=== PATIENT | male | born 1990 | race Caucasian/White ===

== ENCOUNTER 2019-11-29 11:56 | Inpatient (IN) | payer OTHER ==
[~2019-11-29] VITALS: Ht 167.6 cm; Wt 60.0 kg
--- NOTE | 2019-11-29 12:01 | NUR ---
PT AMBULATED TO RESTROOM WITH STEADY GAIT.
[2019-11-29] MEDS ORDERED: PLEASE ENTER ALLERGIES MC SCH (12:30)
[2019-11-29] MEDS ORDERED: SODIUM CHLORIDE FLUSH 10ML SYR IVF ONE (12:30)
[2019-11-29 12:53] LABS: MEAN CORPUSCULAR HEMOGLOBIN 35.6 pg (27.5-34.5); MEAN CORPUSCULAR HGB CONC 33.9 g/dL (33.2-36.2); MEAN CORPUSCULAR VOLUME 105.1 fL (81-97); MEAN PLATELET VOLUME 8.1 fL (7.4-10.4); PLATELET COUNT 307 x10^3/uL (130-400); RED CELL DISTRIBUTION WIDTH 14.7 % (9.4-14.8)
[2019-11-29 13:03] LABS: ALBUMIN 2.2 g/dL (3.4-5.0); ANION GAP 11 mmol/L (5-15); CALCIUM 7.1 mg/dL (8.5-10.1); CHLORIDE 103 mmol/L (98-107)
[2019-11-29 13:10] LABS: ALANINE AMINOTRANSFERASE 99 U/L (12-78); ALKALINE PHOSPHATASE 73 U/L (45-117); BILIRUBIN,TOTAL 0.6 mg/dL (0.2-1.0); CREATININE 0.95 mg/dL (0.7-1.3); TOTAL PROTEIN 6.4 g/dL (6.4-8.2); TROPONIN I < 0.015 ng/mL (0.000-0.045)
[2019-11-29 13:15] LABS: INTERNATIONAL NORMALIZED RATIO 1.15 (0.93-1.1); PROTHROMBIN TIME 12.2 Seconds (9.6-11.5)
--- NOTE | 2019-11-29 13:43 | NUR ---
PT RESTING COMFORTABLY ON GURNEY WATCHING TV. NADN. WARM BLANKET PROVIDED.
[2019-11-29 14:07] LABS: MD YES
[2019-11-29 14:16] LABS: BASOS#(MANUAL) 0.09 x10^3/uL (0-0.1); BASOS% (MANUAL) 1 % (0-1); LYMPH#(MANUAL) 0.43 x10^3/uL (1-3.4); LYMPHS% (MANUAL) 5 % (22-44); MONOS#(MANUAL) 0.95 x10^3/uL (0.3-2.7); MONOS% (MANUAL) 11 % (2-9)
[2019-11-29 14:24] LABS: BAND#(MANUAL) 1.98 x10^3/uL; BANDS%(MANUAL) 23 % (0-7)
[2019-11-29 14:27] LABS: <PLATELET ESTIMATE> ADEQUATE; <PLT MORPHOLOGY> NORMAL PLT MORPH
[2019-11-29 14:28] LABS: PMNS WITH VACUOLES 1+; TOXIC GRAN 1+
[2019-11-29 14:29] LABS: METAMYELOCYTES# (MANUAL) 0.17 x10^3/uL (0-0); METAMYELOCYTES% (MANUAL) 2 % (0-1)
[2019-11-29 14:30] LABS: MYELOCYTES# (MANUAL) 0.09 x10^3/uL (0-0); MYELOCYTES% (MANUAL) 1 % (0-0); SEGS% (MANUAL) 57 % (42-75)
--- NOTE | 2019-11-29 14:35 | NUR ---
ALL RESULTS ARE BACK AT THIS TIME. CHART UP FOR RECHECK.
--- NOTE | 2019-11-29 14:41 | NUR ---
MD AT BEDSIDE TO UPDATE PT ON POC.
--- NOTE | 2019-11-29 14:42 | NUR ---
PT RESTING COMFORTABLY ON [place] WATCHING TV.
[2019-11-29] MEDS ORDERED: SODIUM CHLORIDE FLUSH 10ML SYR IVF PRN (15:00)
--- NOTE | 2019-11-29 15:31 | NUR ---
KENDELL LUNA DELIVERED. PT SITTING UP ON [facility].
--- NOTE | 2019-11-29 15:57 | NUR ---
REPORT GIVEN TO ALFONZO HERNANDEZ.
[2019-11-29] MEDS ORDERED: ACETAMINOPHEN 325 MG TABLET PO PRN (16:30)
[2019-11-29] MEDS ORDERED: LORazepam 1MG TABLET PO PRN ×4 (16:30)
[2019-11-29] MEDS ORDERED: POLYETHYLENE GLYCOL 17 GM PACKET PO PRN (16:30)
[2019-11-29] MEDS ORDERED: ONDANSETRON 2MG/ML, 2ML IVPush PRN (16:30)
[2019-11-29] MEDS ORDERED: GUAIFENESIN/DM 200-20MG, 10ML UDC PO PRN (16:30)
[2019-11-29] MEDS ORDERED: POTASSIUM CHLORIDE 20 MEQ TAB.ER.PRT PO ONE (16:30)
[2019-11-29] MEDS ORDERED: LORazepam 0.5MG TABLET PO PRN (16:30)
[2019-11-29] MEDS ORDERED: DOCUSATE 100 MG CAPSULE PO PRN (16:30)
[2019-11-29] MEDS ORDERED: PROMETHAZINE 25 MG/ML, 1ML IM PRN (16:30)
[2019-11-29] MEDS ORDERED: BISACODYL 10 MG SUPP PR PRN (16:30)
[2019-11-29] MEDS: ENOXAPARIN 40 MG/0.4 ML SQ SCH (17:00)
[2019-11-29 18:05] VITALS: BP 128/89
[2019-11-29] MEDS: NICOTINE 21 MG/24 HR PATCH.TD24 TD SCH (18:11)
[2019-11-29] MEDS: CHLORDIAZEPOXIDE 25 MG CAPSULE PO SCH ×2 (18:11→23:57)
[2019-11-29] MEDS: THIAMINE 200 MG, MVI ADULT 10 ML, FOLIC ACID 1 MG in D5%-0.9% NACL 1,000 ML IV SCH (18:15)
[2019-11-29 19:25] LABS: CLOSTRIDIUM DIFFICILE TOXIN POSITIVE (Negative)
[2019-11-29 19:26] LABS: CLOSTRIDIUM DIFFICILE ANTIGEN POSITIVE
[2019-11-29] MEDS: VANCOMYCIN 50 MG/ML ORAL SUSP PO SCH (20:50)
[2019-11-29] MEDS ORDERED: BENZONATATE 100 MG CAPSULE ONE (23:55)
[2019-11-29] MEDS: BENZONATATE 100 MG CAPSULE PO SCH (23:58)
[2019-11-30 02:00] VITALS: BP 129/87
[2019-11-30] MEDS: VANCOMYCIN 50 MG/ML ORAL SUSP PO SCH ×4 (02:43→22:41)
[2019-11-30 05:43] LABS: ALBUMIN 1.8 g/dL (3.4-5.0); ANION GAP 7 mmol/L (5-15); CALCIUM 7.3 mg/dL (8.5-10.1); CHLORIDE 106 mmol/L (98-107)
[2019-11-30 05:57] LABS: ALANINE AMINOTRANSFERASE 68 U/L (12-78); ALKALINE PHOSPHATASE 62 U/L (45-117); BILIRUBIN,TOTAL 0.7 mg/dL (0.2-1.0); CREATININE 0.74 mg/dL (0.7-1.3); TOTAL PROTEIN 5.5 g/dL (6.4-8.2)
[2019-11-30 06:17] LABS: MD YES; MEAN CORPUSCULAR HEMOGLOBIN 36.1 pg (27.5-34.5); MEAN CORPUSCULAR HGB CONC 33.9 g/dL (33.2-36.2); MEAN CORPUSCULAR VOLUME 106.4 fL (81-97); MEAN PLATELET VOLUME 8.3 fL (7.4-10.4); PLATELET COUNT 268 x10^3/uL (130-400); RED BLOOD COUNT 3.11 x10^6/uL (4.38-5.82); RED CELL DISTRIBUTION WIDTH 14.6 % (9.4-14.8)
[2019-11-30 06:19] LABS: BANDS%(MANUAL) 37 % (0-7); EOS#(MANUAL) 0.17 x10^3/uL (0.0-0.4); EOS% (MANUAL) 1 % (1-7); LYMPH#(MANUAL) 0.69 x10^3/uL (1-3.4); LYMPHS% (MANUAL) 4 % (22-44); MONOS#(MANUAL) 0.87 x10^3/uL (0.3-2.7); MONOS% (MANUAL) 5 % (2-9); SEG#(MANUAL) 9.17 x10^3/uL (1.8-6.8); SEGS% (MANUAL) 53 % (42-75)
[2019-11-30 06:20] LABS: <PLATELET ESTIMATE> ADEQUATE; <PLT MORPHOLOGY> NORMAL PLT MORPH; PMNS WITH VACUOLES 1+; TOXIC GRAN 1+
[2019-11-30] MEDS: CHLORDIAZEPOXIDE 25 MG CAPSULE PO SCH ×4 (06:28→22:41)
[2019-11-30 07:01] VITALS: BP 115/84
[2019-11-30] MEDS: AZITHROMYCIN 500 MG in SODIUM CHLORIDE 0.9% 250 ML IV SCH (08:48)
[2019-11-30] MEDS: BENZONATATE 100 MG CAPSULE PO SCH ×3 (08:48→22:41)
[2019-11-30] MEDS: CEFTRIAXONE PMX 1GM/50ML 50 ML IV SCH (08:48)
[2019-11-30] MEDS ORDERED: MAGNESIUM SULFATE PMX 4GM/100M 100 ML IV ONE (10:00)
[2019-11-30] MEDS: POTASSIUM CHLORIDE 20 MEQ TAB.ER.PRT PO SCH ×2 (12:46→16:56)
[2019-11-30 13:23] VITALS: BP 111/76
[2019-11-30] MEDS: ENOXAPARIN 40 MG/0.4 ML SQ SCH (17:00)
[2019-11-30] MEDS: NICOTINE 21 MG/24 HR PATCH.TD24 TD SCH (17:09)
[2019-11-30 18:47] VITALS: BP 117/84
[2019-11-30] MEDS: THIAMINE 200 MG, MVI ADULT 10 ML, FOLIC ACID 1 MG in D5%-0.9% NACL 1,000 ML IV SCH (19:05)
[2019-12-01 00:59] VITALS: BP 113/74
[2019-12-01] MEDS: CHLORDIAZEPOXIDE 25 MG CAPSULE PO SCH ×4 (04:30→22:45)
[2019-12-01] MEDS: VANCOMYCIN 50 MG/ML ORAL SUSP PO SCH ×4 (05:15→22:45)
[2019-12-01 08:55] VITALS: BP 117/68
[2019-12-01] MEDS: MAGNESIUM OXIDE 400 MG TABLET PO SCH (09:02)
[2019-12-01] MEDS: BENZONATATE 100 MG CAPSULE PO SCH ×3 (09:02→19:55)
[2019-12-01] MEDS: AZITHROMYCIN 500 MG in SODIUM CHLORIDE 0.9% 250 ML IV SCH (09:02)
[2019-12-01 09:18] LABS: MEAN CORPUSCULAR HEMOGLOBIN 35.7 pg (27.5-34.5); MEAN CORPUSCULAR HGB CONC 33.7 g/dL (33.2-36.2); MEAN PLATELET VOLUME 8.1 fL (7.4-10.4); PLATELET COUNT 267 x10^3/uL (130-400); RED BLOOD COUNT 3.34 x10^6/uL (4.38-5.82); RED CELL DISTRIBUTION WIDTH 14.8 % (9.4-14.8)
[2019-12-01 09:25] LABS: ANION GAP 5 mmol/L (5-15); CALCIUM 7.3 mg/dL (8.5-10.1); CHLORIDE 103 mmol/L (98-107); CREATININE 0.67 mg/dL (0.7-1.3)
[2019-12-01 09:40] LABS: MD YES
[2019-12-01 09:41] LABS: BANDS%(MANUAL) 4 % (0-7); EOS#(MANUAL) 0.35 x10^3/uL (0.0-0.4); EOS% (MANUAL) 2 % (1-7); LYMPH#(MANUAL) 2.09 x10^3/uL (1-3.4); LYMPHS% (MANUAL) 12 % (22-44); MONOS#(MANUAL) 1.04 x10^3/uL (0.3-2.7); MONOS% (MANUAL) 6 % (2-9); SEG#(MANUAL) 13.22 x10^3/uL (1.8-6.8); SEGS% (MANUAL) 76 % (42-75)
[2019-12-01 09:42] LABS: <PLATELET ESTIMATE> ADEQUATE; <PLT MORPHOLOGY> NORMAL PLT MORPH; PMNS WITH VACUOLES 1+; TOXIC GRAN 1+
[2019-12-01] MEDS: CEFTRIAXONE PMX 1GM/50ML 50 ML IV SCH (10:47)
[2019-12-01 14:16] VITALS: BP 116/70
[2019-12-01] MEDS ORDERED: MAGNESIUM SULFATE PMX 2GM/50ML 50 ML IV ONE (15:30)
[2019-12-01] MEDS ORDERED: LACTOBACILLUS CHEW TABLET PO SCH (16:00)
[2019-12-01] MEDS: ENOXAPARIN 40 MG/0.4 ML SQ SCH (16:49)
[2019-12-01] MEDS: NICOTINE 21 MG/24 HR PATCH.TD24 TD SCH (17:07)
[2019-12-01 19:07] VITALS: BP 137/81
[2019-12-01] MEDS: LACTOBACILLUS CHEW TABLET PO SCH (19:55)
[2019-12-02 01:02] VITALS: BP 132/85
[2019-12-02] MEDS: CHLORDIAZEPOXIDE 25 MG CAPSULE PO SCH ×2 (04:30→10:35)
[2019-12-02] MEDS: VANCOMYCIN 50 MG/ML ORAL SUSP PO SCH ×4 (05:21→22:54)
[2019-12-02] MEDS: LACTOBACILLUS CHEW TABLET PO SCH ×4 (05:22→20:39)
[2019-12-02 06:00] LABS: ALBUMIN 1.7 g/dL (3.4-5.0); ANION GAP 6 mmol/L (5-15); CALCIUM 7.7 mg/dL (8.5-10.1); CHLORIDE 100 mmol/L (98-107)
[2019-12-02 06:04] LABS: MEAN CORPUSCULAR HEMOGLOBIN 35.7 pg (27.5-34.5); MEAN CORPUSCULAR HGB CONC 33.9 g/dL (33.2-36.2); MEAN CORPUSCULAR VOLUME 105.3 fL (81-97); MEAN PLATELET VOLUME 8.6 fL (7.4-10.4); PLATELET COUNT 261 x10^3/uL (130-400); RED BLOOD COUNT 3.25 x10^6/uL (4.38-5.82); RED CELL DISTRIBUTION WIDTH 14.8 % (9.4-14.8)
[2019-12-02 06:23] LABS: ALANINE AMINOTRANSFERASE 46 U/L (12-78); ALKALINE PHOSPHATASE 80 U/L (45-117); BILIRUBIN,TOTAL 0.4 mg/dL (0.2-1.0); CREATININE 0.69 mg/dL (0.7-1.3); TOTAL PROTEIN 5.8 g/dL (6.4-8.2)
[2019-12-02] MEDS ORDERED: MAGNESIUM SULFATE PMX 4GM/100M 100 ML IV ONE (07:00)
[2019-12-02 07:05] LABS: MD YES
[2019-12-02 07:06] LABS: BAND#(MANUAL) 0.36 x10^3/uL; BANDS%(MANUAL) 2 % (0-7); LYMPH#(MANUAL) 1.99 x10^3/uL (1-3.4); LYMPHS% (MANUAL) 11 % (22-44); METAMYELOCYTES# (MANUAL) 0.18 x10^3/uL (0-0); METAMYELOCYTES% (MANUAL) 1 % (0-1); MONOS#(MANUAL) 3.26 x10^3/uL (0.3-2.7); MONOS% (MANUAL) 18 % (2-9); SEG#(MANUAL) 12.31 x10^3/uL (1.8-6.8); SEGS% (MANUAL) 68 % (42-75)
[2019-12-02 07:08] LABS: <PLATELET ESTIMATE> ADEQUATE; <PLT MORPHOLOGY> NORMAL PLT MORPH
[2019-12-02 07:11] VITALS: BP 127/84
[2019-12-02] MEDS: MAGNESIUM OXIDE 400 MG TABLET PO SCH (08:31)
[2019-12-02] MEDS: FOLIC ACID 1 MG TABLET PO SCH (08:31)
[2019-12-02] MEDS: THIAMINE 100MG TABLET PO SCH (08:31)
[2019-12-02] MEDS: AZITHROMYCIN 500 MG in SODIUM CHLORIDE 0.9% 250 ML IV SCH (08:31)
[2019-12-02] MEDS: MULTIVITAMINS/MINERALS TABLET PO SCH (08:31)
[2019-12-02] MEDS: BENZONATATE 100 MG CAPSULE PO SCH ×3 (08:31→20:39)
[2019-12-02] MEDS: CEFTRIAXONE PMX 1GM/50ML 50 ML IV SCH (09:52)
[2019-12-02 13:59] VITALS: BP 119/74
[2019-12-02] MEDS: ENOXAPARIN 40 MG/0.4 ML SQ SCH (16:23)
[2019-12-02] MEDS: NICOTINE 21 MG/24 HR PATCH.TD24 TD SCH (16:38)
[2019-12-02 20:03] VITALS: BP 115/79
[2019-12-03 02:34] VITALS: BP 124/78
[2019-12-03] MEDS: VANCOMYCIN 50 MG/ML ORAL SUSP PO SCH ×4 (05:30→22:02)
[2019-12-03] MEDS: LACTOBACILLUS CHEW TABLET PO SCH ×4 (05:30→20:25)
[2019-12-03 07:05] VITALS: BP 136/88
[2019-12-03] MEDS: MAGNESIUM OXIDE 400 MG TABLET PO SCH (08:13)
[2019-12-03] MEDS: MULTIVITAMINS/MINERALS TABLET PO SCH (08:13)
[2019-12-03] MEDS: AZITHROMYCIN 500 MG in SODIUM CHLORIDE 0.9% 250 ML IV SCH (08:13)
[2019-12-03] MEDS: THIAMINE 100MG TABLET PO SCH (08:13)
[2019-12-03] MEDS: FOLIC ACID 1 MG TABLET PO SCH (08:13)
[2019-12-03] MEDS: BENZONATATE 100 MG CAPSULE PO SCH ×3 (08:14→20:25)
[2019-12-03 08:53] LABS: ANION GAP 7 mmol/L (5-15); CALCIUM 7.8 mg/dL (8.5-10.1); CHLORIDE 99 mmol/L (98-107); CREATININE 0.65 mg/dL (0.7-1.3)
[2019-12-03] MEDS: CEFTRIAXONE PMX 1GM/50ML 50 ML IV SCH (10:08)
[2019-12-03 10:11] LABS: BASOPHILS # (AUTO) 0.07 x10^3/uL (0-0.1); BASOPHILS % (AUTO) 0 % (0-1); EOSINOPHILS # (AUTO) 0.32 x10^3/uL (0-0.4); EOSINOPHILS % (AUTO) 2 % (1-7); LYMPHOCYTES # (AUTO) 2.22 x10^3/uL (1-3.4); LYMPHOCYTES % (AUTO) 13 % (22-44); MD SCAN; MEAN CORPUSCULAR HEMOGLOBIN 35.4 pg (27.5-34.5); MEAN CORPUSCULAR HGB CONC 33.7 g/dL (33.2-36.2); MEAN CORPUSCULAR VOLUME 105.1 fL (81-97); MEAN PLATELET VOLUME 8.3 fL (7.4-10.4); MONOCYTES # (AUTO) 3.16 x10^3/uL (0.2-0.8); MONOCYTES % (AUTO) 18 % (2-9); NEUTROPHILS # (AUTO) 11.51 x10^3/uL (1.8-6.8); NEUTROPHILS % (AUTO) 67 % (42-75); PLATELET COUNT 420 x10^3/uL (130-400); RED BLOOD COUNT 3.24 x10^6/uL (4.38-5.82); RED CELL DISTRIBUTION WIDTH 15.1 % (9.4-14.8)
[2019-12-03 14:28] VITALS: BP 116/78
[2019-12-03] MEDS: ENOXAPARIN 40 MG/0.4 ML SQ SCH (16:46)
[2019-12-03] MEDS: NICOTINE 21 MG/24 HR PATCH.TD24 TD SCH (16:56)
[2019-12-03 19:18] VITALS: BP 129/85
[2019-12-04 02:12] VITALS: BP 126/90
[2019-12-04] MEDS: VANCOMYCIN 50 MG/ML ORAL SUSP PO SCH ×4 (05:01→23:39)
[2019-12-04] MEDS: LACTOBACILLUS CHEW TABLET PO SCH ×4 (05:01→20:34)
[2019-12-04 07:42] LABS: MEAN CORPUSCULAR HEMOGLOBIN 35.8 pg (27.5-34.5); MEAN CORPUSCULAR HGB CONC 33.5 g/dL (33.2-36.2); MEAN CORPUSCULAR VOLUME 106.9 fL (81-97); MEAN PLATELET VOLUME 8.4 fL (7.4-10.4); PLATELET COUNT 521 x10^3/uL (130-400); RED BLOOD COUNT 3.11 x10^6/uL (4.38-5.82); RED CELL DISTRIBUTION WIDTH 14.7 % (9.4-14.8)
[2019-12-04 07:54] LABS: ANION GAP 8 mmol/L (5-15); CALCIUM 7.6 mg/dL (8.5-10.1); CHLORIDE 99 mmol/L (98-107)
[2019-12-04 08:00] LABS: ALANINE AMINOTRANSFERASE 35 U/L (12-78); ALBUMIN 1.8 g/dL (3.4-5.0); ALKALINE PHOSPHATASE 77 U/L (45-117); BASOPHILS # (AUTO) 0.04 x10^3/uL (0-0.1); BASOPHILS % (AUTO) 0 % (0-1); BILIRUBIN,TOTAL 0.5 mg/dL (0.2-1.0); CREATININE 0.66 mg/dL (0.7-1.3); EOSINOPHILS # (AUTO) 0.31 x10^3/uL (0-0.4); EOSINOPHILS % (AUTO) 2 % (1-7); LYMPHOCYTES # (AUTO) 1.83 x10^3/uL (1-3.4); LYMPHOCYTES % (AUTO) 14 % (22-44); MD SCAN; MONOCYTES # (AUTO) 2.27 x10^3/uL (0.2-0.8); MONOCYTES % (AUTO) 17 % (2-9); NEUTROPHILS # (AUTO) 8.86 x10^3/uL (1.8-6.8); NEUTROPHILS % (AUTO) 67 % (42-75); TOTAL PROTEIN 6.2 g/dL (6.4-8.2)
[2019-12-04] MEDS: AZITHROMYCIN 500 MG in SODIUM CHLORIDE 0.9% 250 ML IV SCH (09:29)
[2019-12-04] MEDS: FOLIC ACID 1 MG TABLET PO SCH (09:29)
[2019-12-04] MEDS: BENZONATATE 100 MG CAPSULE PO SCH ×3 (09:29→20:34)
[2019-12-04] MEDS: THIAMINE 100MG TABLET PO SCH (09:30)
[2019-12-04] MEDS: MAGNESIUM OXIDE 400 MG TABLET PO SCH (09:30)
[2019-12-04] MEDS: MULTIVITAMINS/MINERALS TABLET PO SCH (09:30)
[2019-12-04 09:40] VITALS: BP 117/80
[2019-12-04] MEDS: CEFTRIAXONE PMX 1GM/50ML 50 ML IV SCH (11:30)
[2019-12-04] MEDS ORDERED: OMNIPAQUE 350 MG/ML, 75ML BOTTLE ONE (14:00)
[2019-12-04] MEDS: NICOTINE 21 MG/24 HR PATCH.TD24 TD SCH (15:46)
[2019-12-04] MEDS: ENOXAPARIN 40 MG/0.4 ML SQ SCH (17:00)
[2019-12-04 17:03] VITALS: BP 127/80
[2019-12-04 17:36] VITALS: BP 127/80
[2019-12-04] MEDS: HYDROcodone/APAP 5/325 TABLET PO PRN ×3 (18:20→23:34)
[2019-12-04] MEDS: LINEZOLID PMX 600MG/300ML 300 ML IV SCH (18:21)
[2019-12-04 19:38] VITALS: BP 123/81
[2019-12-04] MEDS: PIPERACILLIN/TAZO/PMX 3.375GM 50 ML IV SCH (20:35)
[2019-12-05 01:14] VITALS: BP 120/76
[2019-12-05] MEDS: PIPERACILLIN/TAZO/PMX 3.375GM 50 ML IV SCH ×4 (02:35→21:15)
[2019-12-05] MEDS: HYDROcodone/APAP 5/325 TABLET PO PRN ×5 (02:41→21:14)
[2019-12-05] MEDS: LACTOBACILLUS CHEW TABLET PO SCH ×4 (05:38→21:14)
[2019-12-05] MEDS: VANCOMYCIN 50 MG/ML ORAL SUSP PO SCH ×4 (05:38→23:57)
[2019-12-05 05:52] LABS: MEAN CORPUSCULAR HGB CONC 33.1 g/dL (33.2-36.2); MEAN CORPUSCULAR VOLUME 105.9 fL (81-97); PLATELET COUNT 619 x10^3/uL (130-400); RED BLOOD COUNT 3.19 x10^6/uL (4.38-5.82); RED CELL DISTRIBUTION WIDTH 14.6 % (9.4-14.8)
[2019-12-05 06:16] LABS: ALANINE AMINOTRANSFERASE 32 U/L (12-78); ALBUMIN 1.8 g/dL (3.4-5.0); ANION GAP 5 mmol/L (5-15); CALCIUM 8.1 mg/dL (8.5-10.1); CHLORIDE 99 mmol/L (98-107); CREATININE 0.71 mg/dL (0.7-1.3)
[2019-12-05 06:18] LABS: ALKALINE PHOSPHATASE 76 U/L (45-117); BILIRUBIN,TOTAL 0.6 mg/dL (0.2-1.0); TOTAL PROTEIN 6.3 g/dL (6.4-8.2)
[2019-12-05] MEDS: LINEZOLID PMX 600MG/300ML 300 ML IV SCH ×2 (06:36→18:19)
[2019-12-05 06:40] LABS: BASOPHILS # (AUTO) 0.07 x10^3/uL (0-0.1); BASOPHILS % (AUTO) 1 % (0-1); EOSINOPHILS # (AUTO) 0.37 x10^3/uL (0-0.4); EOSINOPHILS % (AUTO) 3 % (1-7); LYMPHOCYTES # (AUTO) 1.92 x10^3/uL (1-3.4); LYMPHOCYTES % (AUTO) 14 % (22-44); MD SCAN; MONOCYTES # (AUTO) 2.04 x10^3/uL (0.2-0.8); MONOCYTES % (AUTO) 15 % (2-9); NEUTROPHILS # (AUTO) 9.64 x10^3/uL (1.8-6.8); NEUTROPHILS % (AUTO) 69 % (42-75)
[2019-12-05 07:25] VITALS: BP 126/83
[2019-12-05] MEDS: MAGNESIUM OXIDE 400 MG TABLET PO SCH (09:33)
[2019-12-05] MEDS: BENZONATATE 100 MG CAPSULE PO SCH ×3 (09:33→21:14)
[2019-12-05] MEDS: THIAMINE 100MG TABLET PO SCH (09:33)
[2019-12-05] MEDS: FOLIC ACID 1 MG TABLET PO SCH (09:33)
[2019-12-05] MEDS: MULTIVITAMINS/MINERALS TABLET PO SCH (09:33)
[2019-12-05 14:10] VITALS: BP 104/71
[2019-12-05] MEDS: ENOXAPARIN 40 MG/0.4 ML SQ SCH (16:38)
[2019-12-05] MEDS: NICOTINE 21 MG/24 HR PATCH.TD24 TD SCH (16:39)
[2019-12-05 19:27] VITALS: BP 116/74
[2019-12-06] VITALS: BP 123/79
[2019-12-06] MEDS: PIPERACILLIN/TAZO/PMX 3.375GM 50 ML IV SCH ×4 (03:37→22:00)
[2019-12-06 05:18] LABS: MEAN CORPUSCULAR HEMOGLOBIN 35.6 pg (27.5-34.5); MEAN CORPUSCULAR HGB CONC 33.4 g/dL (33.2-36.2); MEAN CORPUSCULAR VOLUME 106.5 fL (81-97); MEAN PLATELET VOLUME 7.8 fL (7.4-10.4); PLATELET COUNT 785 x10^3/uL (130-400); RED BLOOD COUNT 3.21 x10^6/uL (4.38-5.82); RED CELL DISTRIBUTION WIDTH 14.8 % (9.4-14.8)
[2019-12-06 05:30] LABS: ANION GAP 6 mmol/L (5-15); CALCIUM 8.4 mg/dL (8.5-10.1); CHLORIDE 100 mmol/L (98-107)
[2019-12-06 05:37] LABS: ALANINE AMINOTRANSFERASE 27 U/L (12-78); ALKALINE PHOSPHATASE 81 U/L (45-117); BILIRUBIN,TOTAL 0.4 mg/dL (0.2-1.0); CREATININE 0.73 mg/dL (0.7-1.3); TOTAL PROTEIN 6.7 g/dL (6.4-8.2)
[2019-12-06 05:45] LABS: BASOPHILS % (AUTO) 1 % (0-1); EOSINOPHILS # (AUTO) 0.28 x10^3/uL (0-0.4); EOSINOPHILS % (AUTO) 2 % (1-7); LYMPHOCYTES # (AUTO) 2.02 x10^3/uL (1-3.4); LYMPHOCYTES % (AUTO) 11 % (22-44); MD SCAN; MONOCYTES # (AUTO) 1.28 x10^3/uL (0.2-0.8); MONOCYTES % (AUTO) 7 % (2-9); NEUTROPHILS # (AUTO) 13.94 x10^3/uL (1.8-6.8); NEUTROPHILS % (AUTO) 79 % (42-75)
[2019-12-06] MEDS: LACTOBACILLUS CHEW TABLET PO SCH ×4 (06:18→19:47)
[2019-12-06] MEDS: LINEZOLID PMX 600MG/300ML 300 ML IV SCH ×2 (06:18→18:33)
[2019-12-06] MEDS: VANCOMYCIN 50 MG/ML ORAL SUSP PO SCH ×4 (06:18→23:53)
[2019-12-06 06:19] VITALS: BP 119/75
[2019-12-06] MEDS: HYDROcodone/APAP 5/325 TABLET PO PRN ×5 (06:27→23:57)
[2019-12-06] MEDS: MULTIVITAMINS/MINERALS TABLET PO SCH (10:04)
[2019-12-06] MEDS: BENZONATATE 100 MG CAPSULE PO SCH ×3 (10:04→19:48)
[2019-12-06] MEDS: FOLIC ACID 1 MG TABLET PO SCH (10:04)
[2019-12-06] MEDS: THIAMINE 100MG TABLET PO SCH (10:04)
[2019-12-06] MEDS: MAGNESIUM OXIDE 400 MG TABLET PO SCH (10:04)
[2019-12-06] MEDS: NICOTINE 21 MG/24 HR PATCH.TD24 TD SCH (15:44)
[2019-12-06 15:49] VITALS: BP 123/81
[2019-12-06] MEDS: ENOXAPARIN 40 MG/0.4 ML SQ SCH (17:00)
[2019-12-06] MEDS ORDERED: OMNIPAQUE 350 MG/ML, 100ML BOTTLE ONE (17:12)
[2019-12-06 19:30] VITALS: BP 114/75
[2019-12-07 02:06] VITALS: BP 114/71
[2019-12-07] MEDS: PIPERACILLIN/TAZO/PMX 3.375GM 50 ML IV SCH ×4 (03:36→22:03)
[2019-12-07] MEDS: HYDROcodone/APAP 5/325 TABLET PO PRN ×5 (04:28→22:03)
[2019-12-07] MEDS: VANCOMYCIN 50 MG/ML ORAL SUSP PO SCH ×3 (06:13→17:49)
[2019-12-07] MEDS: LACTOBACILLUS CHEW TABLET PO SCH ×4 (06:13→19:33)
[2019-12-07] MEDS: LINEZOLID PMX 600MG/300ML 300 ML IV SCH ×2 (06:13→18:38)
[2019-12-07 06:51] VITALS: BP 105/60
[2019-12-07 07:35] LABS: MEAN CORPUSCULAR HEMOGLOBIN 35.1 pg (27.5-34.5); MEAN CORPUSCULAR HGB CONC 33.1 g/dL (33.2-36.2); MEAN CORPUSCULAR VOLUME 106.1 fL (81-97); MEAN PLATELET VOLUME 7.3 fL (7.4-10.4); PLATELET COUNT 959 x10^3/uL (130-400); RED BLOOD COUNT 3.43 x10^6/uL (4.38-5.82); RED CELL DISTRIBUTION WIDTH 14.9 % (9.4-14.8)
[2019-12-07 07:42] LABS: ALANINE AMINOTRANSFERASE 27 U/L (12-78); ANION GAP 6 mmol/L (5-15); CALCIUM 8.4 mg/dL (8.5-10.1); CHLORIDE 98 mmol/L (98-107); CREATININE 0.77 mg/dL (0.7-1.3)
[2019-12-07 07:45] LABS: ALKALINE PHOSPHATASE 69 U/L (45-117); BILIRUBIN,TOTAL 0.4 mg/dL (0.2-1.0); TOTAL PROTEIN 7.2 g/dL (6.4-8.2)
[2019-12-07 08:33] LABS: MD SCAN
[2019-12-07 08:35] LABS: BASOPHILS # (AUTO) 0.08 x10^3/uL (0-0.1); BASOPHILS % (AUTO) 0 % (0-1); EOSINOPHILS # (AUTO) 0.19 x10^3/uL (0-0.4); EOSINOPHILS % (AUTO) 1 % (1-7); LYMPHOCYTES # (AUTO) 1.88 x10^3/uL (1-3.4); LYMPHOCYTES % (AUTO) 10 % (22-44); MONOCYTES # (AUTO) 1.65 x10^3/uL (0.2-0.8); MONOCYTES % (AUTO) 8 % (2-9); NEUTROPHILS % (AUTO) 81 % (42-75)
[2019-12-07] MEDS: MULTIVITAMINS/MINERALS TABLET PO SCH (09:14)
[2019-12-07] MEDS: BENZONATATE 100 MG CAPSULE PO SCH ×3 (09:14→19:32)
[2019-12-07] MEDS: MAGNESIUM OXIDE 400 MG TABLET PO SCH (09:14)
[2019-12-07] MEDS: THIAMINE 100MG TABLET PO SCH (09:14)
[2019-12-07] MEDS: FOLIC ACID 1 MG TABLET PO SCH (09:14)
[2019-12-07 10:41] LABS: HCT (SEDRATE) 36.4 % (39.2-51.8)
[2019-12-07] MEDS: ENOXAPARIN 40 MG/0.4 ML SQ SCH (12:05)
[2019-12-07] MEDS ORDERED: LIDOCAINE 1%, 10ML ONE (12:14)
[2019-12-07 13:57] VITALS: BP 104/69
[2019-12-07] MEDS: NICOTINE 21 MG/24 HR PATCH.TD24 TD SCH (15:40)
[2019-12-07 19:36] VITALS: BP 114/72
[2019-12-07] MEDS ORDERED: PNEUMOC 13-VALENT VACC, 0.5 ML IM-VACC ONE (20:00)
[2019-12-07] MEDS ORDERED: FLU VAC QS 19-20(4YR UP)CEL/PF 0.5 ML IM ONE (20:00)
[2019-12-07] MEDS ORDERED: FLU VACC QS2019-20 36MOS UP/PF 0.5 ML IM-VACC ONE ×2 (20:30→21:00)
[2019-12-08] MEDS: VANCOMYCIN 50 MG/ML ORAL SUSP PO SCH ×4 (00:23→16:53)
[2019-12-08 00:24] VITALS: BP 106/68
[2019-12-08] MEDS: PIPERACILLIN/TAZO/PMX 3.375GM 50 ML IV SCH ×3 (03:30→08:45)
[2019-12-08] MEDS: HYDROcodone/APAP 5/325 TABLET PO PRN ×4 (03:57→20:36)
[2019-12-08 05:30] LABS: MEAN CORPUSCULAR HEMOGLOBIN 35.4 pg (27.5-34.5); MEAN CORPUSCULAR HGB CONC 33.3 g/dL (33.2-36.2); MEAN CORPUSCULAR VOLUME 106.4 fL (81-97); MEAN PLATELET VOLUME 7.4 fL (7.4-10.4); RED CELL DISTRIBUTION WIDTH 14.8 % (9.4-14.8)
[2019-12-08 05:33] LABS: PLATELET COUNT 1084 x10^3/uL (130-400)
[2019-12-08 05:37] LABS: ANION GAP 7 mmol/L (5-15); CALCIUM 8.6 mg/dL (8.5-10.1); CHLORIDE 100 mmol/L (98-107); CREATININE 0.81 mg/dL (0.7-1.3)
[2019-12-08 05:54] LABS: MD YES
[2019-12-08 05:56] LABS: ANISOCYTOSIS 1+; BASOS#(MANUAL) 0.23 x10^3/uL (0-0.1); BASOS% (MANUAL) 1 % (0-1); LYMPHS% (MANUAL) 10 % (22-44); MONOS#(MANUAL) 2.07 x10^3/uL (0.3-2.7); MONOS% (MANUAL) 9 % (2-9); SEGS% (MANUAL) 80 % (42-75)
[2019-12-08 05:57] LABS: <PLATELET ESTIMATE> INCREASED; <PLT MORPHOLOGY> NORMAL PLT MORPH
[2019-12-08] MEDS: LACTOBACILLUS CHEW TABLET PO SCH ×4 (06:21→20:37)
[2019-12-08] MEDS: LINEZOLID PMX 600MG/300ML 300 ML IV SCH ×2 (06:22→20:37)
[2019-12-08 08:15] VITALS: BP 107/70
[2019-12-08] MEDS: MULTIVITAMINS/MINERALS TABLET PO SCH (08:43)
[2019-12-08] MEDS: MAGNESIUM OXIDE 400 MG TABLET PO SCH (08:43)
[2019-12-08] MEDS: FOLIC ACID 1 MG TABLET PO SCH (08:43)
[2019-12-08] MEDS: BENZONATATE 100 MG CAPSULE PO SCH ×3 (08:44→20:36)
[2019-12-08] MEDS: THIAMINE 100MG TABLET PO SCH (08:45)
[2019-12-08] MEDS: NICOTINE 21 MG/24 HR PATCH.TD24 TD SCH (14:27)
[2019-12-08] MEDS ORDERED: DEXTROSE IV SCH (14:30)
[2019-12-08] MEDS ORDERED: TRIMETHOPRIM IV SCH (14:30)
[2019-12-08] MEDS ORDERED: SULFAMETH IV SCH (14:30)
[2019-12-08 14:35] VITALS: BP 105/69
[2019-12-08] MEDS: CEFEPIME 2 GM in DEXTROSE 5% 100 ML IV SCH ×2 (15:35→22:39)
[2019-12-08] MEDS: SULFAMETH./TRIMETHOPRIM 20 ML in DEXTROSE 5% 500 ML IV SCH ×2 (16:44→23:25)
[2019-12-08] MEDS: ENOXAPARIN 40 MG/0.4 ML SQ SCH (16:50)
[2019-12-08 18:40] VITALS: BP 116/73
[2019-12-09] MEDS: HYDROcodone/APAP 5/325 TABLET PO PRN ×5 (00:49→22:43)
[2019-12-09] MEDS: VANCOMYCIN 50 MG/ML ORAL SUSP PO SCH ×5 (00:49→23:36)
[2019-12-09 00:54] VITALS: BP 117/71
[2019-12-09] MEDS: ASPIRIN 81 MG TABLET EC PO SCH (05:28)
[2019-12-09] MEDS: LACTOBACILLUS CHEW TABLET PO SCH ×4 (05:28→20:08)
[2019-12-09] MEDS: CEFEPIME 2 GM in DEXTROSE 5% 100 ML IV SCH ×3 (05:29→22:37)
[2019-12-09 05:32] LABS: MEAN CORPUSCULAR HEMOGLOBIN 35.4 pg (27.5-34.5); MEAN CORPUSCULAR HGB CONC 33.6 g/dL (33.2-36.2); MEAN CORPUSCULAR VOLUME 105.3 fL (81-97); MEAN PLATELET VOLUME 7.2 fL (7.4-10.4); PLATELET COUNT 979 x10^3/uL (130-400); RED BLOOD COUNT 3.29 x10^6/uL (4.38-5.82); RED CELL DISTRIBUTION WIDTH 14.9 % (9.4-14.8)
[2019-12-09 05:35] LABS: ANION GAP 7 mmol/L (5-15); CALCIUM 8.6 mg/dL (8.5-10.1); CHLORIDE 101 mmol/L (98-107); CREATININE 0.84 mg/dL (0.7-1.3)
[2019-12-09 05:56] LABS: BASOPHILS % (AUTO) 1 % (0-1); EOSINOPHILS # (AUTO) 0.34 x10^3/uL (0-0.4); EOSINOPHILS % (AUTO) 2 % (1-7); LYMPHOCYTES # (AUTO) 2.03 x10^3/uL (1-3.4); LYMPHOCYTES % (AUTO) 13 % (22-44); MD SCAN; MONOCYTES # (AUTO) 1.22 x10^3/uL (0.2-0.8); MONOCYTES % (AUTO) 8 % (2-9); NEUTROPHILS # (AUTO) 12.33 x10^3/uL (1.8-6.8); NEUTROPHILS % (AUTO) 77 % (42-75)
[2019-12-09] MEDS: SULFAMETH./TRIMETHOPRIM 20 ML in DEXTROSE 5% 500 ML IV SCH (06:33)
[2019-12-09 07:13] VITALS: BP 99/62
[2019-12-09] MEDS: MAGNESIUM OXIDE 400 MG TABLET PO SCH (08:55)
[2019-12-09] MEDS: LINEZOLID PMX 600MG/300ML 300 ML IV SCH (08:55)
[2019-12-09] MEDS: BENZONATATE 100 MG CAPSULE PO SCH ×3 (08:55→20:08)
[2019-12-09] MEDS: FOLIC ACID 1 MG TABLET PO SCH (08:55)
[2019-12-09] MEDS: MULTIVITAMINS/MINERALS TABLET PO SCH (08:55)
[2019-12-09] MEDS: THIAMINE 100MG TABLET PO SCH (08:56)
[2019-12-09 10:51] LABS: QUANTIFERON TB Ag1-NIL 0.01 (0.000-0.000)
[2019-12-09 12:42] VITALS: BP 106/58
[2019-12-09] MEDS: NICOTINE 21 MG/24 HR PATCH.TD24 TD SCH (16:54)
[2019-12-09] MEDS: ENOXAPARIN 40 MG/0.4 ML SQ SCH (16:57)
[2019-12-09 19:59] VITALS: BP 101/67
[2019-12-10 01:59] VITALS: BP 105/66
[2019-12-10] MEDS: ASPIRIN 81 MG TABLET EC PO SCH (05:42)
[2019-12-10] MEDS: LACTOBACILLUS CHEW TABLET PO SCH ×4 (05:42→22:20)
[2019-12-10] MEDS: HYDROcodone/APAP 5/325 TABLET PO PRN ×4 (05:42→19:28)
[2019-12-10] MEDS: CEFEPIME 2 GM in DEXTROSE 5% 100 ML IV SCH ×3 (05:43→22:21)
[2019-12-10] MEDS: VANCOMYCIN 50 MG/ML ORAL SUSP PO SCH ×3 (05:46→17:11)
[2019-12-10 06:09] LABS: ANION GAP 6 mmol/L (5-15); CALCIUM 8.8 mg/dL (8.5-10.1); CHLORIDE 101 mmol/L (98-107)
[2019-12-10 06:10] LABS: CREATININE 0.99 mg/dL (0.7-1.3)
[2019-12-10 06:16] LABS: MEAN CORPUSCULAR HEMOGLOBIN 35.4 pg (27.5-34.5); MEAN CORPUSCULAR HGB CONC 32.9 g/dL (33.2-36.2); MEAN CORPUSCULAR VOLUME 107.5 fL (81-97); MEAN PLATELET VOLUME 7.1 fL (7.4-10.4); RED BLOOD COUNT 3.19 x10^6/uL (4.38-5.82); RED CELL DISTRIBUTION WIDTH 14.6 % (9.4-14.8)
[2019-12-10 06:35] LABS: PLATELET COUNT 1129 x10^3/uL (130-400)
[2019-12-10 06:40] LABS: MD SCAN
[2019-12-10 06:41] LABS: BASOPHILS # (AUTO) 0.08 x10^3/uL (0-0.1); BASOPHILS % (AUTO) 1 % (0-1); EOSINOPHILS # (AUTO) 0.21 x10^3/uL (0-0.4); EOSINOPHILS % (AUTO) 1 % (1-7); LYMPHOCYTES # (AUTO) 1.93 x10^3/uL (1-3.4); LYMPHOCYTES % (AUTO) 12 % (22-44); MONOCYTES # (AUTO) 1.03 x10^3/uL (0.2-0.8); MONOCYTES % (AUTO) 7 % (2-9); NEUTROPHILS % (AUTO) 79 % (42-75)
[2019-12-10] MEDS: MAGNESIUM OXIDE 400 MG TABLET PO SCH (08:30)
[2019-12-10] MEDS: BENZONATATE 100 MG CAPSULE PO SCH ×3 (08:30→22:20)
[2019-12-10] MEDS: MULTIVITAMINS/MINERALS TABLET PO SCH (08:30)
[2019-12-10] MEDS: FOLIC ACID 1 MG TABLET PO SCH (08:31)
[2019-12-10] MEDS: THIAMINE 100MG TABLET PO SCH (08:31)
[2019-12-10 08:50] VITALS: BP 118/77
[2019-12-10] MEDS: FLUCONAZOLE 200 MG TABLET PO SCH (11:45)
[2019-12-10] MEDS ORDERED: SODIUM CHLORIDE INHALATION 7%, 4 ML NPPB ONE (12:00)
[2019-12-10 14:30] VITALS: BP 116/67
[2019-12-10] MEDS: NICOTINE 21 MG/24 HR PATCH.TD24 TD SCH (15:17)
[2019-12-10] MEDS: ENOXAPARIN 40 MG/0.4 ML SQ SCH (16:27)
[2019-12-10 19:09] VITALS: BP 115/69
[2019-12-11 01:59] VITALS: BP 100/60
[2019-12-11] MEDS: HYDROcodone/APAP 5/325 TABLET PO PRN ×4 (02:26→21:08)
[2019-12-11] MEDS: ASPIRIN 81 MG TABLET EC PO SCH (06:09)
[2019-12-11] MEDS: CEFEPIME 2 GM in DEXTROSE 5% 100 ML IV SCH ×3 (06:09→23:34)
[2019-12-11] MEDS: LACTOBACILLUS CHEW TABLET PO SCH ×4 (06:09→20:59)
[2019-12-11 07:56] VITALS: BP 105/68
[2019-12-11] MEDS: BENZONATATE 100 MG CAPSULE PO SCH ×3 (08:21→20:59)
[2019-12-11] MEDS: MAGNESIUM OXIDE 400 MG TABLET PO SCH (08:21)
[2019-12-11] MEDS: FOLIC ACID 1 MG TABLET PO SCH (08:21)
[2019-12-11] MEDS: MULTIVITAMINS/MINERALS TABLET PO SCH (08:21)
[2019-12-11] MEDS: FLUCONAZOLE 200 MG TABLET PO SCH (08:23)
[2019-12-11] MEDS: THIAMINE 100MG TABLET PO SCH (08:24)
[2019-12-11] MEDS: NICOTINE 21 MG/24 HR PATCH.TD24 TD SCH (14:50)
[2019-12-11 14:58] VITALS: BP 115/78
[2019-12-11] MEDS: ENOXAPARIN 40 MG/0.4 ML SQ SCH (17:00)
[2019-12-11 19:19] VITALS: BP 120/83
[2019-12-12] MEDS: HYDROcodone/APAP 5/325 TABLET PO PRN ×3 (01:41→12:34)
[2019-12-12 01:45] VITALS: BP 105/69
[2019-12-12] MEDS: LACTOBACILLUS CHEW TABLET PO SCH ×3 (06:37→17:34)
[2019-12-12] MEDS: ASPIRIN 81 MG TABLET EC PO SCH (06:37)
[2019-12-12] MEDS: CEFEPIME 2 GM in DEXTROSE 5% 100 ML IV SCH ×2 (07:17→15:30)
[2019-12-12 07:30] VITALS: BP 106/71
[2019-12-12] MEDS: BENZONATATE 100 MG CAPSULE PO SCH ×2 (08:01→17:34)
[2019-12-12] MEDS: THIAMINE 100MG TABLET PO SCH (08:02)
[2019-12-12] MEDS: MULTIVITAMINS/MINERALS TABLET PO SCH (08:02)
[2019-12-12] MEDS: MAGNESIUM OXIDE 400 MG TABLET PO SCH (08:02)
[2019-12-12] MEDS: FLUCONAZOLE 200 MG TABLET PO SCH (08:03)
[2019-12-12] MEDS: FOLIC ACID 1 MG TABLET PO SCH (08:03)
[2019-12-12 09:28] LABS: MEAN CORPUSCULAR HEMOGLOBIN 35.5 pg (27.5-34.5); MEAN CORPUSCULAR HGB CONC 33.6 g/dL (33.2-36.2); MEAN CORPUSCULAR VOLUME 105.6 fL (81-97); MEAN PLATELET VOLUME 6.4 fL (7.4-10.4); RED BLOOD COUNT 3.26 x10^6/uL (4.38-5.82); RED CELL DISTRIBUTION WIDTH 15.5 % (9.4-14.8)
[2019-12-12 09:29] LABS: PLATELET COUNT 1146 x10^3/uL (130-400)
[2019-12-12 10:00] LABS: BASOPHILS # (AUTO) 0.19 x10^3/uL (0-0.1); BASOPHILS % (AUTO) 1 % (0-1); EOSINOPHILS # (AUTO) 0.38 x10^3/uL (0-0.4); EOSINOPHILS % (AUTO) 3 % (1-7); LYMPHOCYTES # (AUTO) 2.53 x10^3/uL (1-3.4); LYMPHOCYTES % (AUTO) 19 % (22-44); MD SCAN; MONOCYTES # (AUTO) 1.02 x10^3/uL (0.2-0.8); MONOCYTES % (AUTO) 8 % (2-9); NEUTROPHILS # (AUTO) 9.07 x10^3/uL (1.8-6.8); NEUTROPHILS % (AUTO) 69 % (42-75)
[2019-12-12 14:00] VITALS: BP 106/66
[2019-12-12] MEDS ORDERED: ACID1TAB7 PO (15:59)
[2019-12-12] MEDS ORDERED: CEFD300C37 PO (15:59)
[2019-12-12] MEDS ORDERED: FLUC200T PO (15:59)
[2019-12-12] MEDS ORDERED: VANCOMYCIN 50 MG/ML ORAL SUSP PO SCH (16:00)
[2019-12-12] MEDS: NICOTINE 21 MG/24 HR PATCH.TD24 TD SCH (16:00)
[2019-12-12] MEDS: ENOXAPARIN 40 MG/0.4 ML SQ SCH (17:00)
== END 2019-12-12 18:38 | disposition home or self-care (01) | DRG 871 ==
LOC: ED 15:11 → SUATTDRO 15:58 → 3E 16:11 → 3N 16:11 → UNDOADMIN 16:11
PROVIDERS: ADMIT Internal Medicine; ATTEND Hospitalist
PROC: 0W993ZZ Drainage of Right Pleural Cavity, Percutaneous Approach (ICD-10-PCS; principal; 2019-12-07)
DX: A41.89 Other specified sepsis (principal); J15.9 Unspecified bacterial pneumonia; J86.9 Pyothorax without fistula; A04.72 Enterocolitis due to Clostridium difficile, not specified as recurrent; E87.2 Acidosis; F10.239 Alcohol dependence with withdrawal, unspecified; F10.288 Alcohol dependence with other alcohol-induced disorder; J91.8 Pleural effusion in other conditions classified elsewhere; J98.11 Atelectasis; K70.10 Alcoholic hepatitis without ascites; D75.89 Other specified diseases of blood and blood-forming organs; E83.42 Hypomagnesemia; E83.51 Hypocalcemia; E87.6 Hypokalemia; E88.09 Other disorders of plasma-protein metabolism, not elsewhere classified; F12.90 Cannabis use, unspecified, uncomplicated; F14.90 Cocaine use, unspecified, uncomplicated; Z21 Asymptomatic human immunodeficiency virus [HIV] infection status; F32.9 Major depressive disorder, single episode, unspecified; F17.210 Nicotine dependence, cigarettes, uncomplicated; Z71.6 Tobacco abuse counseling
CPT/HCPCS: 32555; 36415; 36600; 82042; 82150; 82945; 83986; 87806; 89051; 99285; J3370; J3490; J7042; 71045; 71046; 71260; 71275; 80048; 80053; 82330; 82803; 83605; 83615; 83690; 83735; 83880; 84157; 84443; 84484; 85025; 85379; 85610; 85651; 85730; 86140; 86361; 86480; 86635; 86638; 86701; 86702; 86803; 87040; 87070; 87081; 87102; 87205; 87281; 87305; 87324; 87497; 87535; 87899; 90686; 93005; 93306; 93321; 93325; 94640; G0378; J0456; J0696; J2020; J2543; J3411; Q9967; G0009; G0475; J3475; J7050; J7060